=== PATIENT | male | born 1945 | race Caucasian/White ===

== ENCOUNTER 2018-12-29 07:57 | Inpatient (IN) ==
--- NOTE | 2018-12-14 15:52 | PAT Medication Instructions ---
Medication Instructions Date of Service December 14, 2018 Home Medications [place]-3 1 cap PO QAM aspirin 81 mg PO QAM cholecalciferol (vitamin D3) [Vitamin D3] 2,000 unit PO QAM levothyroxine 125 mcg PO QAM pantoprazole 40 mg PO QAM pravastatin 80 mg PO QPM ASK your prescriber and surgeon aspirin 81 mg PO QAM STOP taking 2 weeks before surgery (or as soon as possible if surgery is within 2 weeks) omega-3 1 cap PO QAM DO NOT take the morning of surgery cholecalciferol (vitamin D3) [Vitamin D3] 2,000 unit PO QAM Take morning of surgery With a small sip of water, OTHERWISE NOTHING TO EAT OR DRINK AFTER MIDNIGHT: levothyroxine 125 mcg PO QAM pantoprazole 40 mg PO QAM Take evening before surgery pravastatin 80 mg PO QPM Other Notes If you have any questions please call us at [phone] or [phone] or [phone] or [phone]
--- NOTE | 2018-12-15 09:58 | Anesthesiology Consultation ---
Date of Service December 15, 2018 Assessment & Plan (1) Encounter for pre-operative examination: - Awaiting review preop testing (labs, EKG, CXR). - Awaiting cardiology office visit scheduled 12/21/18, o monitor report and optimization response (Dr. Munoz). - ASA instructions: okay to continue perioperatively per surgeon Chart Review Chart Review: Patient seen in Pre Admission Testing Teaching & Discussion Pre-Anesthesia Teaching/Discussion Notes: Instructed NPO after midnight before surgery,except medications with 15 cc of water. Medication instructions provided according to the PAT guidelines. History Surgery Operation Date: 12/29/18 10:05 Proposed Procedures p L4-L5 Decompression and Fusion, - Evan Hackett DO s L1-L4 Hardware Removal with Spinal Cord Monitoring - Evan Hackett DO Height/Weight Height: 6 ft Weight: 101 kg Allergies Allergy/AdvReac Type Severity Reaction Status Date / Time hydrocodone Allergy Intermediate HIVES Verified 12/09/18 11:48 simvastatin Allergy Mild HIVES Verified 12/14/18 15:50 (with cholesterol med; unsure if zocor/simvastatin) Medications Home Medications Medication Instructions Recorded Confirmed Last Taken [place]-3 1 cap PO QAM 12/09/18 12/09/18 Unknown aspirin 81 mg PO QAM 12/09/18 12/09/18 Unknown cholecalciferol (vitamin D3) 2,000 unit PO QAM 12/09/18 12/09/18 Unknown [Vitamin D3] levothyroxine 125 mcg PO QAM 12/09/18 12/09/18 Unknown pantoprazole 40 mg PO QAM 12/09/18 12/09/18 Unknown pravastatin 80 mg PO QPM 12/09/18 12/09/18 Unknown tramadol 50 mg PO Q6H PRN 12/15/18 12/15/18 Unknown Past Medical History Medical History AAA (abdominal aortic aneurysm) ~3.4cm per patient, monitored by PCP BPH (benign prostatic hyperplasia) Bradycardia chronic, cardiology monitoring-- per patient, told no indication for pacemaker at this time* CAD (coronary artery disease) 2016 - [facility] - 1 stent - follows w/ Dr. Munoz 2005 - [facility] - 1 stent 2004 - [facility] - 1 stent GERD (gastroesophageal reflux disease) controlled Hyperlipidemia Hypothyroidism Myocardial Infarction 2016 Osteoarthritis Spinal stenosis Exercise / Class Metabolic Activity III < 4 Walking/Shop/Light housework Past Surgical History Surgical History History of cardiac cath 2016 - [facility] - 1 stent - follows w/ Dr. Munoz 2006 - [facility] - 1 stent 2005 - [facility] - 1 stent History of colonoscopy History of esophagogastroduodenoscopy (EGD) History of knee replacement procedure of left knee History of knee replacement procedure of right knee History of lumbar spinal fusion Lumbar decompression/fusion: 02/01/13: Grade 3 view, MAC#3, ETT 7.5 at [facility] History of revision of total replacement of right shoulder joint History of right shoulder replacement History of toe surgery Rt great toe History of tooth extraction History of total left hip replacement History of total right hip replacement Past Anesthesia History No Family Hx of Anesthesia Complications and Other "Slow to wake" x 1 episode. No known hx of reintubation. Patient also reports post-op hypotension (resolved with medical management) x 1 episode. History of PONV No Hx of PONV and Hx of Motion Sickness Social History Smoking Status: Never smoker Do You Dip or Chew Tobacco: No Hx Alcohol Use: Yes Alcohol type: beer and wine alcohol intake frequency: a few times a month Hx Substance Use: No substance use type: does not use Review of Systems Reflux controlled. Patient denies chest pain, shortness of breath, cough, wheezing, palpitations. Physical Exam Vital Signs VITALS BP 151/79 P 47 (baseline HR 40's) TEMP 97.6 SP02 94%RA RESP 18 PHYSICAL Full neck and c-spine range of motion. Full TMJ range of motion. TMD 3 finger breaths Mallampati Score 3 (small oral opening) Dentition: missing sides, implant upper front Lungs: clear throughout to auscultation Cardiac: bradycardia, regular rhythm, no murmurs noted Spine: normal Carotid arteries: negative bruit Extremities: no edema Testing Echocardiogram Date: 09/06/17 EF 30-35%. Akinetic anteroseptal and apical wall segments- remaining regments HK. Mild LAE/DEWEY. Thickened MV. Consistent with DD. Stress Test Date: 03/30/18 Type: nuclear LVEF 39%. Moderate diffuse HK. Anterior/anteroseptal wall infarction pattern. 41% MPHR. Regadenoson induced perfusion abnormality in the inferior and septal consistent with ischemia in the RCA distribution. *Subsequent cardiac cath* Cardiac Catheterization Date: 04/21/18 angiographically moderate CAD. Patent LAD/CX stents. LVEF 35%. Medical management recommended.
--- NOTE | 2018-12-15 11:04 | XRay Report ---
XR chest Pre-admission PA/Lat CLINICAL HISTORY: Preoperative evaluation. COMPARISON STUDY: Chest radiograph August 26, 2017. FINDINGS: Lung volumes are normal. Lungs are clear. There is no pneumothorax or pleural effusion. Mil d cardiomegaly is unchanged. Mediastinal contours are normal. There is no evidence for pulmonary katia a. Right shoulder arthroplasty and spine fusion hardware is incidentally noted. IMPRESSION: No acute cardiopulmonary findings. No change in appearance of the chest. Electronically signed by: Truong Kohli M.D. 12/15/2018 11:03 AM
[2018-12-15 12:16] LABS: Basophils # (auto) 0.01 K/uL (0-0.2); Basophils % (auto) 0.2 %; Eosinophils # (auto) 0.14 K/uL (0-0.5); Eosinophils % (auto) 2.4 %; Hematocrit (blood only) 51.4 % (42-52); Hemoglobin 17.5 g/dL (14.0-18.0); Immature Granulocytes # (auto) 0.02 K/uL (0.00-0.02); Immature Granulocytes % (auto) 0.3 %; Lymphocytes # (auto) 1.74 K/uL (1.2-3.4); Lymphocytes % (auto) 29.9 %; Mean Corpuscular Hemoglobin 32.6 pg (25-34); Mean Corpuscular Volume 95.7 fL (80-100); Mean Platelet Volume 11.2 fL (7.4-10.4); Monocytes # (auto) 0.59 K/uL (0.11-0.59); Monocytes % (auto) 10.1 %; Neutrophils # (auto) 3.32 K/uL (1.4-6.5); Neutrophils % (auto) 57.1 %; Platelet Count 127 K/uL (130-400); RDW Coefficient of Variation 13.6 % (11.5-14.5); RDW Standard Deviation 47.6 fL (36.4-46.3); Red Blood Count 5.37 M/uL (4.7-6.1); White Blood Count 5.82 K/uL (4.8-10.8)
[2018-12-15 12:25] LABS: BUN Creatinine Ratio 16.2 (10-20); Calcium 8.9 mg/dl (8.5-10.1); Creatinine Clr Calc Pharmacy 87.6 ml/min; Est GFR (African American) 95.9; Est GFR (Non-African American) 82.7; Potassium 4.6 mmol/L (3.5-5.1)
[2018-12-15 12:30] LABS: Partial Thromboplastin Time 26.2 Seconds (21.0-31.0); Prothrombin Time 10.7 Seconds (9.0-12.0)
[2018-12-15 12:32] LABS: Appearance Urine Clear (Clear); Bilirubin Urine Negative (Negative); Blood Urine Negative (Negative); Color Urine Yellow; Glucose Urine UA Negative (Negative); Ketones Urine Negative (Negative); Leukocyte Esterase Urine Negative (Negative); Nitrite Urine Negative (Negative); Protein Urine Negative (Negative); Urobilinogen Urine Negative (Negative)
[~2018-12-29 07:57] MED LIST: ACETAMINOPHEN 500 MG TAB PO SCH; CEFAZOLIN 2000MG 2,000 MG/15 ML SYR IV SCH; CeleBREX 200 MG CAP PO SCH; DEXAMETHASONE SOD INJ 4 MG/ML VIAL ONE; GABAPENTIN 300 MG CAP PO SCH; GLYCOPYRROLATE 0.2 MG/ML VIAL ONE; HYDROmorphone INJ 2 MG/ML SYR/VIAL ONE; LIDOCAINE HCL 2% 2 ML VIAL/AMP(20MG/ML) INFIL ONE; LR 15ML/HR IV SCH; MIDAZOLAM HCL 1 MG/ML 2ML VIAL ONE; NEOSTIGMINE METHYLSULFATE 1 MG/ML 10ML VIAL ONE; ONDANSETRON INJ 2 MG/ML 2 ML VIAL ONE; PROPOFOL IV EMULSION 10 MG/ML 20 ML VIAL IV ONE; ROCURONIUM BROMIDE 10 MG/ML 5 ML VIAL ONE; fentaNYL citrate 100 MCG/2 ML VIAL ONE
--- NOTE | 2018-12-29 08:45 | History & Physical Bridge Note ---
Date of Service December 29, 2018 History & Physical Bridge Note I have examined the patient, reviewed the History & Physical and in the interval since the performance of the History & Physical I have noted the following changes of clinical significance: no changes noted
--- NOTE | 2018-12-29 08:46 | History & Physical Report ---
Date of Service December 29, 2018 Assessment & Plan (1) Spinal stenosis, lumbar region with neurogenic claudication: Decompression and fusion L4-L5 hardware removal L1-L4 Present on Admission?: Yes History of Present Illness Chief Complaint: Back and leg pain Primary Care Provider: LILA Lockhart This is a 73-year-old male presents with chronic persistent back and leg pain after failing extensive course of nonoperative care is here for surgical intervention. Allergies Allergy/AdvReac Type Severity Reaction Status Date / Time hydrocodone Allergy Intermediate HIVES Verified 12/29/18 08:37 simvastatin Allergy Mild HIVES Verified 12/29/18 08:37 (with cholesterol med; unsure if zocor/simvastatin) Home Medications Home Medications Medication Instructions Recorded Confirmed Type [place]-3 1 cap PO QAM 12/09/18 12/29/18 History aspirin 81 mg PO QAM 12/09/18 12/29/18 History cholecalciferol (vitamin D3) 2,000 unit PO QAM 12/09/18 12/29/18 History [Vitamin D3] levothyroxine 125 mcg PO QAM 12/09/18 12/29/18 History pantoprazole 40 mg PO QAM 12/09/18 12/29/18 History pravastatin 80 mg PO QPM 12/09/18 12/29/18 History tramadol 50 mg PO Q6H PRN 12/15/18 12/29/18 History acetaminophen [Tylenol Arthritis 1,300 mg PO Q8 PRN 12/29/18 12/29/18 History Pain] Past Med/Surg History Social History Preferred Language: Mongolian Communication Ability: Effective Hydro Operator Required: No Beliefs That Will Affect Care: None Current Living Situation: Spouse Other Information That Helps Us Care for You: No Feels Safe at Home: Yes Safety Concerns: Feels Safe At This Time Smoking Status: Never smoker Do You Dip or Chew Tobacco: No ; Second Hand Exposure: No ; Hx Alcohol Use: Yes Alcohol type: beer and wine Hx Substance Use: No Physical Exam Physical Exam: Patient is alert and oriented neurologically intact. Results & Data Vital Signs (Past 12 Hours) Vital Signs Temp Pulse Resp BP Pulse Ox 12/29/18 08:43 36.8 C 56 L 20 153/85 H 96
[2018-12-29] MEDS ORDERED: BACITRACIN INJ 50,000 UNIT VIAL ONE (09:00)
[2018-12-29] MEDS ORDERED: BUPIVACAINE/EPINEPHRINE 0.5% MPF 1:200,000 30 ML VIAL ONE (09:01)
[2018-12-29] MEDS ORDERED: ATROPINE SULFATE 0.1 MG/ML 10ML SYR IV PRN (09:08)
[2018-12-29] MEDS ORDERED: fentaNYL citrate 100 MCG/2 ML VIAL IV PRN (09:08)
[2018-12-29] MEDS ORDERED: PROMETHAZINE HCL 12.5 MG in SODIUM CHLORIDE 0.9% 50 ML IV PRN ×2 (09:08→13:34)
[2018-12-29] MEDS ORDERED: ePHEDrine sulfate 50 MG/ML AMP IV PRN (09:08)
[2018-12-29] MEDS ORDERED: ONDANSETRON INJ 2 MG/ML 2 ML VIAL IV PRN ×2 (09:08→13:34)
[2018-12-29] MEDS ORDERED: fentaNYL citrate 100 MCG/2 ML VIAL ONE ×4 (09:54→11:44)
[2018-12-29] MEDS ORDERED: FLOSEAL HEMOSTATIC MATRIX 10ML TOP ONE (11:39)
[2018-12-29] MEDS ORDERED: ePHEDrine sulfate 50 MG/ML SYR ONE (11:43)
[2018-12-29] MEDS ORDERED: ePHEDrine sulfate 50 MG/ML AMP ONE (11:43)
[2018-12-29] MEDS ORDERED: KETOROLAC 30 MG/ML VIAL ONE (11:43)
[2018-12-29] MEDS ORDERED: PHENYLEPHRINE 100MCG/ML 5ML SYR ONE (11:43)
--- NOTE | 2018-12-29 11:44 | Operative Report ---
Post Operative Report Pre & Post Diagnosis Operation Date: 12/29/18 09:15 Pre-Op Diagnosis: Spinal stenosis, lumbar region with neurogenic claudication Post-Op Diagnosis: Spinal stenosis, lumbar region with neurogenic claudication I personally identified the patient: Yes Procedure Operation Date: 12/29/18 09:15 Actual Procedures #1 removal of posterior segmental instrumentation L1-L4. #2 expiration fusion L1-L4. #3 lumbar decompression with bilateral medial facetectomies and foraminotomies L4-5. #4 posterior spinal fusion L4-5 per #5 placement posterior instrumentation L4-5 per #6 interbody fusion L4-5 per #7 placement of titanium 13 x 26 mm cage L4-5 per #8 placement of local autograft in the posterior lateral gutters per #9 placement infuse collagen sponge, with master graft in the posterior lateral gutters and ostial amp and interbody space. Surgeon Evan Hackett DO P D Driver Madelyn Osuna Estimated Blood Loss 375 Findings Consistent with Post-Op Diagnosis Specimens None Indications This is a 73-year-old male well-known to the presents with above-mentioned diagnosis after failing extensive course of nonoperative care is here for surgical intervention. Description of Procedure Patient was met with identified and informed consent obtained. Patient was then taken to the operative suite underwent intubation placed in the prone position the Gato table on top of the Daniel frame. All bony prominences well-padded eyes inspected to ensure no external pressure placed upon but this point the lumbar spine was prepped and draped in the normal sterile fashion. Sharp dissection with the assistance of Bovie cautery was performed down to and exposing instrumentation at L1 L2-L3-L4 bilaterally as well as the lamina and transverse processes of L5. I then proceed remove the hardware bilaterally from L1-L4 explain the fusion mass noting it to be intact. And then performed a complete laminectomy of L5 including bilateral medial facetectomies foraminotomies addressing severe spinal stenosis. Pedicle screws were then placed in L4 and L5 bilaterally with assistance of fluoroscopy and the appropriately sized julianne placed. By way of a transforaminal approach on the right complete discectomy was performed in plate graded to subcortical mean bone and a 13 x 26 mm titanium cage filled with osteo-amp bone graft tapped in position. Rods and then compressed locked in final position bilaterally. The transverse processes of L5 and L4 were then burred to subcortical bleeding bone. Infuse collagen sponge master graft and local autograft placed in the posterior lateral gutters. 15 round SAMEER drain inserted. The incision was then closed with 1 Vicryl in the fascia 2-0 Vicryl substantially and 4 Monocryl for final skin closure. Steri-Strip sterile dressings placed. Patient will continue to PACU stable condition. Please note Madelyn Osuna present all the entire procedure involved in patient positioning complex portions of the surgery and final skin closure. Lastly spinal cord monitoring was utilized throughout the procedure no changes noted. I attest to the content of the Intraoperative Record and any orders documented therein. Any exceptions are noted below.
--- NOTE | 2018-12-29 11:56 | Fluoroscopy Report ---
FL lumbar spine 2-3V HISTORY: 73 years-old Male L4-5 DECOM/FUSION L1-4 HARDWARE REMOVAL STATUS post fusion with hardware removal of the lumbar spine COMPARISON: Lumbar spine radiographic images 02/11/2013 TECHNIQUE: 2 spot fluoroscopic images of the lumbar spine were obtained utilizing 10.4 seconds fluoro scopy time. FINDINGS: Status post removal of the previously described fusion rods at L1-L4 with removal of the pedicle scre ws at L1-L3. Laminectomy with posterior interbody julianne and screw fusion with discectomy changes are no w present at L4-L5. Multilevel disc space narrowing with spondylitic spurring. Alignment is not well assessed secondary to positioning. Correlate with follow-up radiograph. IMPRESSION: Fluoroscopic assistance as above. Please see operative report for further details. The above report was generated using voice recognition software. It may contain grammatical, syntax o r spelling errors. Electronically signed by: Nazario Noel M.D. 12/29/2018 11:55 AM
--- NOTE | 2018-12-29 12:36 | Anesthesiology Progress Note ---
Date of Service December 29, 2018 Anesthesia Post Procedure Vital Signs Vital Signs: Temp Pulse Pulse Resp BP Pulse Ox 12/29/18 12:25 71 16 144/81 H 95 12/29/18 12:15 67 16 143/83 H 95 12/29/18 12:07 36.5 C 83 16 147/84 H 93 12/29/18 08:43 36.8 C 56 L 20 153/85 H 96 Pain Intensity Right Back: Pain Intensity: 10 Left Back: Pain Intensity: 3 Transfer of Care Handoff Completed per policy Notes Mental Status: alert / awake / arousable and participated in evaluation Patient Amnestic to Procedure: Yes Nausea / Vomiting: adequately controlled Pain: adequately controlled Airway Patency, RR, SpO2: stable & adequate BP & HR: stable & adequate Hydration State: stable & adequate Anesthetic Complications: no major complications apparent and Pt Satisfied with anesthetic care
[2018-12-29] MEDS ORDERED: ALUMINUM/MAGNESIUM SUSP 30 ML UDC PO PRN (13:34)
[2018-12-29] MEDS ORDERED: ACETAMINOPHEN 1300 MG PO PRN (13:34)
[2018-12-29] MEDS ORDERED: ONDANSETRON 4 MG TAB PO PRN (13:34)
[2018-12-29] MEDS ORDERED: MAGNESIUM HYDROXIDE SUSP 30 ML UDC PO PRN (13:34)
[2018-12-29] MEDS ORDERED: ACETAMINOPHEN 1,000 MG/100 ML VIAL IV PRN (13:34)
[2018-12-29] MEDS ORDERED: NALOXONE HCL 0.4 MG/1 ML VIAL/CARP IV PRN (13:34)
[2018-12-29] MEDS ORDERED: ACETAMINOPHEN 500 MG TAB PO PRN (13:34)
[2018-12-29] MEDS ORDERED: bisacodyL 10 MG SUPP PR PRN (13:34)
[2018-12-29] MEDS ORDERED: DO NOT ADMINISTER PNEUMOCOCCAL VACCINE PRN (13:34)
[2018-12-29] MEDS ORDERED: METOCLOPRAMIDE HCL INJ 5 MG/ML 2 ML VIAL IV PRN (13:34)
[2018-12-29] MEDS ORDERED: FAMOTIDINE 20 MG TAB PO PRN (13:34)
[2018-12-29] MEDS ORDERED: HYDROmorphone INJ 0.5 MG/0.5 ML SYR IV PRN (13:34)
[2018-12-29] MEDS ORDERED: LORazepam 0.5 MG/1 ML VIAL IV PRN (13:34)
[2018-12-29] MEDS ORDERED: TRAMADOL HCL 50 MG TABLET PO PRN (13:34)
[2018-12-29] MEDS ORDERED: DO NOT ADMINISTER FLU VACCINE PRN (13:34)
[2018-12-29] MEDS ORDERED: LORazepam 0.5 MG TAB PO PRN (13:34)
[2018-12-29] MEDS ORDERED: SOD PHOSPHATE/SOD BIPHOSPHATE ENEMA 132 ML BTL PR PRN (13:34)
[2018-12-29] MEDS: KETOROLAC TROMETHAMINE 15 MG/ML VIAL IV SCH ×2 (15:11→19:42)
[2018-12-29] MEDS: LACTATED RINGER'S 1,000 ML IV SCH (17:19)
[2018-12-29] MEDS: CEFAZOLIN 2000MG 2,000 MG/15 ML SYR IV SCH (17:23)
[2018-12-29] MEDS: DOCUSATE SODIUM/SENNA 50/8.6MG TAB PO SCH (20:33)
[2018-12-29] MEDS: PRAVASTATIN SOD 40 MG TAB PO SCH (20:33)
[2018-12-30] MEDS: KETOROLAC TROMETHAMINE 15 MG/ML VIAL IV SCH ×2 (00:55→08:31)
[2018-12-30] MEDS: CEFAZOLIN 2000MG 2,000 MG/15 ML SYR IV SCH (00:55)
[2018-12-30] MEDS: LACTATED RINGER'S 1,000 ML IV SCH (03:54)
[2018-12-30 05:34] LABS: Hematocrit (blood only) 42.1 % (42-52); Hemoglobin 14.3 g/dL (14.0-18.0); Immature Granulocytes # (auto) 0.06 K/uL (0.00-0.02); Immature Granulocytes % (auto) 0.3 %; Lymphocytes # (auto) 1.52 K/uL (1.2-3.4); Lymphocytes % (auto) 8.1 %; Mean Corpuscular Hemoglobin 32.3 pg (25-34); Mean Platelet Volume 10.6 fL (7.4-10.4); Monocytes % (auto) 6.9 %; Neutrophils # (auto) 15.94 K/uL (1.4-6.5); Neutrophils % (auto) 84.7 %; Platelet Count 141 K/uL (130-400); RDW Coefficient of Variation 13.7 % (11.5-14.5); RDW Standard Deviation 47.6 fL (36.4-46.3); Red Blood Count 4.43 M/uL (4.7-6.1); White Blood Count 18.82 K/uL (4.8-10.8)
[2018-12-30] MEDS: POLYETHYLENE (MIRALAX) 17 GM PACK PO SCH ×3 (05:43→17:48)
[2018-12-30] MEDS: LEVOTHYROXINE SODIUM 125 MCG TABLET PO SCH (05:43)
[2018-12-30 06:04] LABS: Calcium 8.5 mg/dl (8.5-10.1); Creatinine Clr Calc Pharmacy 81.1 ml/min; Est GFR (African American) 89.3; Potassium 4.9 mmol/L (3.5-5.1)
--- NOTE | 2018-12-30 08:17 | Anesthesiology Progress Note ---
Date of Service December 30, 2018 Anesthesia Post Procedure Vital Signs Vital Signs: Temp Pulse Pulse Resp BP Pulse Ox 12/30/18 07:47 36.5 C 56 L 16 124/73 94 12/30/18 03:50 36.8 C 61 18 132/70 96 12/30/18 00:00 36.8 C 66 17 114/62 91 12/29/18 22:31 96 12/29/18 19:02 36.5 C 63 17 117/65 95 12/29/18 16:45 81 18 128/77 96 12/29/18 15:34 87 18 124/76 95 12/29/18 14:10 88 16 125/77 95 12/29/18 13:35 83 16 122/78 94 12/29/18 13:10 36.6 C 64 16 126/73 94 12/29/18 12:45 36.4 C L 64 16 124/75 97 12/29/18 12:35 36.4 C L 66 16 139/76 97 12/29/18 12:25 71 16 144/81 H 95 12/29/18 12:15 67 16 143/83 H 95 12/29/18 12:07 36.5 C 83 16 147/84 H 93 12/29/18 08:43 36.8 C 56 L 20 153/85 H 96 Pain Intensity Right Back: Pain Intensity: 1 Left Back: Pain Intensity: 1 Notes Mental Status: alert / awake / arousable and participated in evaluation Patient Amnestic to Procedure: Yes Nausea / Vomiting: adequately controlled Pain: adequately controlled Airway Patency, RR, SpO2: stable & adequate BP & HR: stable & adequate Hydration State: stable & adequate Anesthetic Complications: no major complications apparent
[2018-12-30] MEDS: PANTOprazole 40 MG TAB PO SCH (08:31)
[2018-12-30] MEDS: ASPIRIN 81 MG ECTAB PO SCH (08:31)
--- NOTE | 2018-12-30 12:52 | Orthopedic Progress Note ---
Date of Service December 30, 2018 Assessment & Plan (1) Spinal stenosis, lumbar region with neurogenic claudication: This time we will continue physical therapy monitor SAMEER output hopefully discharge home this weekend. Present on Admission?: Yes Subjective Patient is doing quite well. Leg pain markedly improved. Physical Exam Physical Exam: Patient has good strength testing appears comfortable. Results & Data Vital Signs (Past 12 Hours) Vital Signs Temp Pulse Resp BP Pulse Ox 12/30/18 07:47 36.5 C 56 L 16 124/73 94 12/30/18 03:50 36.8 C 61 18 132/70 96
[2018-12-30] MEDS: DOCUSATE SODIUM/SENNA 50/8.6MG TAB PO SCH (21:18)
[2018-12-30] MEDS: PRAVASTATIN SOD 40 MG TAB PO SCH (21:18)
[2018-12-30] MEDS: OXYCODONE HCL IR 5 MG TAB (IMMEDIATE RELEASE) PO PRN (21:18)
[2018-12-31] MEDS: LEVOTHYROXINE SODIUM 125 MCG TABLET PO SCH (05:40)
[2018-12-31] MEDS: OXYCODONE HCL IR 5 MG TAB (IMMEDIATE RELEASE) PO PRN ×3 (05:41→20:37)
[2018-12-31] MEDS: ASPIRIN 81 MG ECTAB PO SCH (08:02)
[2018-12-31] MEDS: PANTOprazole 40 MG TAB PO SCH (08:02)
--- NOTE | 2018-12-31 13:27 | Orthopedic Progress Note ---
Date of Service December 31, 2018 Assessment & Plan (1) Spinal stenosis, lumbar region with neurogenic claudication: This time we will continue physical therapy monitor his SAMEER output anticipate discharge home tomorrow. Present on Admission?: Yes Subjective Patient's back pain is controlled leg pain markedly improved. Physical Exam Physical Exam: Patient is in the chair at the bedside. Is good strength testing. Appears comfortable. Results & Data Vital Signs (Past 12 Hours) Vital Signs Temp Pulse Pulse Resp BP Pulse Ox 12/31/18 10:24 64 12/31/18 07:45 36.4 C L 45 L 14 130/74 97
[2018-12-31] MEDS: DOCUSATE SODIUM/SENNA 50/8.6MG TAB PO SCH (20:37)
[2018-12-31] MEDS: PRAVASTATIN SOD 40 MG TAB PO SCH (20:37)
[2019-01-01] MEDS: LEVOTHYROXINE SODIUM 125 MCG TABLET PO SCH (06:01)
[2019-01-01] MEDS: OXYCODONE HCL IR 5 MG TAB (IMMEDIATE RELEASE) PO PRN (06:08)
[2019-01-01] MEDS: PANTOprazole 40 MG TAB PO SCH (08:10)
[2019-01-01] MEDS: ASPIRIN 81 MG ECTAB PO SCH (08:10)
--- NOTE | 2019-01-01 09:59 | Discharge Summary ---
Date of Service January 01, 2019 Admission HPI Per Admitting Provider This is a 73-year-old male presents with chronic persistent back and leg pain after failing extensive course of nonoperative care is here for surgical intervention. Principal Diagnosis Lumbar spinal stenosis with neurogenic claudication Discharge Data Allergies Allergy/AdvReac Type Severity Reaction Status Date / Time hydrocodone Allergy Intermediate HIVES Verified 12/29/18 08:37 simvastatin Allergy Mild HIVES Verified 12/29/18 08:37 (with cholesterol med; unsure if zocor/simvastatin) Consultations 12/29/18 13:34 Consult Case Management - Discharge Planning Routine Procedures Performed Operation Date: 12/29/18 09:15 Actual Procedures p L4-L5 Decompression and Fusion, L1-L4 Hardware Removal with Spinal Cord Monitoring, Application of Bone Morphogenetic Protein and Allograft - Evan Hackett DO Ordered Studies 12/29/18 09:15 FL fluoroscopy <1hr Routine [place] lumbar spine 2-3V Routine Hospital Course (1) Spinal stenosis, lumbar region with neurogenic claudication: Patient underwent lumbar decompression fusion tolerated as well as taken to the orthopedic floor postoperative. Postop day #1 he was up and ambulating. Progressed to postop day #2 postop 3 SAMEER drain decreased appropriately. He has good strength testing. Ambulating well. Subsequently discharged home. Discharge orders instructions from the chart for further review. Total Time Total Time Spent Total Time Spent (In Minutes): 20 minutes Discharge Plan Discharge Items Patient Disposition: Home - Self-Care Reason For Visit: LUMBAR SPINAL STENOSIS W/O NEUROGENIC CLAUDICATION Discharge Diagnosis: Lumbar spinal stenosis with neurogenic claudication Activity: Per Instructions section Non-emergency contact: Primary Care Provider Call non-emergency contact if: you have any medication questions Follow-up/Referrals: Deidre Perry CRNP [Primary Care Provider] - Diet: Regular Addtl Attending Provider Instructions: ACTIVITY RECOMMENDATIONS: SELF CARE INSTRUCTIONS AFTER THORACIC/LUMBAR FUSIONS 1. You may walk to your tolerance. It is good exercise for your legs and back. Expect some back and intermittent leg aches and pains. 2. You may perform "counter-top" level activities (make a sandwich, mallika with a project, etc.). 3. No bending or lifting of more than 10 pounds or back twisting of any nature (roll like a log when turning in bed). 4. You may ride in a car for 20-30 minutes at a time. No driving until after your first visit with your doctor. 5. Frequent changes of position and restricting sitting to 30 minutes at a time will help limit the amount of back spasms and stiffness you may experience. 6. You may discontinue the use of ambulatory aids (cane, crutches, etc.) once your strength and confidence allow. 7. You may pipe threading machine operator the shower and let water strike your incision when you arrive home at least once daily. Do not take a tub bath, sit in a hot tub or go into a swimming pool until after your first recheck in the office. SPECIAL CARE INSTRUCTIONS: VERY IMPORTANT TO READ AND REVIEW A. Your surgical incision has been closed with a cosmetic suture under the skin that will dissolve in about 6 weeks. In 14 days, you can use a pair of clean scissors and cut the suture that is left outside of the skin at the ends of your incision. 1. The small skin tapes can be removed 7 days after surgery if they have not fallen off by that point. 2. You may keep the wound open to air as much as possible to promote healing after post-op day number 5 unless told otherwise by your doctor. 3. If you think the wound looks like it is becoming infected (redness or worsening drainage) and/or you are experiencing fever, chill or worsening back pain and muscle spasms, contact the office so that we may evaluate you as soon as possible. B. Complications are uncommon, but please contact us if you have any signs or symptoms of: 1. wound infection (fever higher than 102.5 degrees F, redness, separation of wound, drainage, or increasing pain from the incision) 2. blood clots in legs (pain, swelling, redness and warmth in legs) 3. urinary tract infection (fever higher than 102.5 degrees F, burning upon urination or increased frequency of urination) 4. nerve problems (inability to walk on your toes or heels, numbness, loss of bowel or bladder control) 5. any other symptoms that concern you C. Please call the office at if you have any concerns or questions about your operation or recovery. D. No smoking! Smoking drastically decreases the chance of a solid fusion. E. Do not take any anti-inflammatory medications (Indocin, Advil, Motrin, Aspirin, Naprosyn, etc.) as these may inhibit the chance of a solid fusion. Tylenol is okay to take for pain. MANAGING PAIN AFTER SPINAL SURGERY 1. Narcotic medication is intended for short-term use and will be provided for surgical pain. Surgical pain usually lasts for a period of 4-6 weeks. Narcotic medication includes Percocet, Vicodin, Darvocet, Tylenol #3 or Lortab. 2. Longer-term pain is more appropriately treated with non-narcotic medication such as Tylenol ES. 3. Muscle spasm is not appropriately treated with narcotics. Muscle relaxers such as Soma, Flexeril or Skelaxin can be used along with Tylenol ES. 4. Remember that we all live with some "aches and pains". This is not unusual or uncommon after an injury or as we get older. a. Back pain is expected and may include muscle spasms for 4 to 6 weeks after surgery. The pain should gradually improve. If the pain worsens for no apparent reason, please contact the office. b. Intermittent leg pain may also be experienced and should not be concerned about unless it worsens for no apparent reason. If so, please contact the office. 5. We will provide appropriate medication within the normal guidelines of their prescribed use. We will also be very cautious and aware of potential abuse and extended duration of patients' medication needs. a. Pain medications are for your comfort and to assist with sleep and rest so that the tissue can heal. They are not provided in order to return to normal activity and should not be used through the day. To do so or worsening pain at night can result from ongoing tissue damage and development of tolerance to the prescribed medicine. 6. Please allow 2-3 days to process refills. Prescriptions will not be mailed but must be picked up at the office. FOLLOW UP VISIT: Keep your scheduled follow-up appointment. Any questions, please call the office at . Pending Studies at Discharge: No Stand-Alone Forms: My [facility] Medications and DC Order Prescriptions: New tramadol 50 mg Tablet 50 mg PO Q4H PRN (Reason: Pain, Moderate) Qty: 30 RF: 0 oxycodone 5 mg Tablet 5 mg PO Q4H PRN (Reason: Pain, Severe) Qty: 30 RF: 0 Continued aspirin 81 mg Tablet,Delayed Release (Dr/Ec) 81 mg PO QAM RF: 0 pravastatin 80 mg Tablet 80 mg PO QPM RF: 0 pantoprazole 40 mg Tablet,Delayed Release (Dr/Ec) 40 mg PO QAM RF: 0 levothyroxine 125 mcg Tablet 125 mcg PO QAM RF: 0 cholecalciferol (vitamin D3) [Vitamin D3] 2,000 unit Capsule 2,000 unit PO QAM RF: 0 [place]-3 1 cap PO QAM RF: 0 tramadol 50 mg Tablet 50 mg PO Q6H PRN (Reason: Pain) RF: 0 acetaminophen [Tylenol Arthritis Pain] 650 mg Tablet Extended Release 1,300 mg PO Q8 PRN (Reason: Pain) RF: 0 Discharge Orders: Discharge Order (Routine); Ordered 01/01/19 Ordered By: Evan Hackett Admission Data Admit Date/Time: 12/29/18 11:47 Attending Provider: Evan Hackett Admit Provider: Evan Hackett Primary Care Provider: Deidre Perry
== END 2019-01-01 11:15 | disposition home or self-care (01) | DRG 455 ==
LOC: ASU 07:57 → 3E 11:47

== ENCOUNTER 2022-05-14 08:43 | Observation (INO) ==
--- NOTE | 2022-05-08 16:39 | Communication Note ---
Date of Service: May 08, 2022 Patient is an ASA 4 and therefore does not meet criteria for surgicenter
--- NOTE | 2022-05-12 11:00 | Anesthesiology Consultation ---
Date of Service May 12, 2022 Assessment & Plan (1) Encounter for pre-operative examination: Chart Review Chart Review: Acceptable Risk for Surgery (pending most recent pacemaker check and updated cardiac testing if available ) and Patient NOT seen in Pre Admission Testing -Please fax for/awaiting- most recent pacemaker check and any updated cardiac testing -Pt initially scheduled at [facility]- Dr Hussein reviewed chart and recommended patient be done at main OR due to comorbidities -COVID screening: Per PAT nursing assessment on 05/08/22. No known COVID-19 positive contacts or current COVID-19 related symptoms. Travel screen negative. Patient vaccinated for Covid. At surgeon discretion if preop Covid testing being done. Per cardio letter 04/25/22= "Preoperative clearance for hip arthroscopy, bursectomy, gluteal tear repair with gluteus braulio transfer on 05/14/2022 . Patient is at intermediate risk for the low risk procedure. Patient currently asymptomatic. METS greater than 4. No further cardiac testing prior to procedure. Continue aspirin perioperatively" Removal previous hardware L1-L4, L4-L5 decompression and fusion 12/29/18= Done under [place] with Grade 1 view with Glidescope #4. ETT #8.0. DL x 1, poor view, GS #4, good view, easy History Surgery Operation Date: 05/14/22 07:00 Proposed Procedures p Left Hip Open Bursectomy, Gluteal Tendon Repair with Gluteus Braulio Transfer(Left) - Sunil Sanchez MD Operation Date: 05/14/22 10:15 Proposed Procedures p Excision Calcific Bursa Hip - Sunil Sanchez MD s Gluteal Tendon Repair witih Gluteus Braulio Transfer - Sunil Sanchez MD Height/Weight Height: 6 ft Weight: 99.79 kg Allergies Allergy/AdvReac Type Severity Reaction Status Date / Time hydrocodone Allergy Intermediate HIVES Verified 05/08/22 08:49 simvastatin Allergy Mild HIVES Verified 05/08/22 08:49 (with cholesterol med; unsure if zocor/simvastatin) Medications Home Medications Medication Instructions Recorded Confirmed Last Taken Goode-3 1 cap PO QAM 12/09/18 05/08/22 12/15/18 aspirin 81 mg tablet,delayed 81 mg PO QAM 12/09/18 05/08/22 12/28/18 08:00 release cholecalciferol (vitamin D3) 50 2,000 unit PO QAM 12/09/18 05/08/22 Unknown mcg (2,000 unit) capsule (Vitamin D3) levothyroxine 125 mcg tablet 125 mcg PO QAM 12/09/18 05/08/22 12/29/18 06:00 pravastatin 80 mg tablet 40 mg PO QPM 12/09/18 05/08/22 12/28/18 20:00 acetaminophen 650 mg 1,300 mg PO Q8 PRN Pain 12/29/18 05/08/22 12/29/18 00:00 tablet,extended release (Tylenol Arthritis Pain) Past Medical History Medical History AAA (abdominal aortic aneurysm) ~3.4cm per patient, monitored by PCP BPH (benign prostatic hyperplasia) Bradycardia S/p pacemaker placement CAD (coronary artery disease) 2015 - [place] [id number] stent - follows w/ [facility] cardio at [facility] 2005 [place] [id number] stent 2004 [place] [address] stent GERD (gastroesophageal reflux disease) controlled History of COVID-19 11/2021 fatigue, runny nose, cough ,fever; no hospitalization, no current issues Hx of basal cell carcinoma Hyperlipidemia Hypothyroidism Myocardial Infarction 2015 Pacemaker [facility]- checked via at home monitor every morning - last visit ?fall 2021 Spinal stenosis Tear of gluteus medius tendon Past Family History Family History Other No family history of adverse response to anesthesia Past Surgical History Surgical History History of cardiac cath 2015 - [place] [id number] stent - follows w/ [facility] cardio- ?2021 2005 [place] [id number] stent 2004 [place] [address] stent History of colonoscopy History of esophagogastroduodenoscopy (EGD) History of implantable cardiac defibrillator (ICD) History of knee replacement procedure of left knee History of knee replacement procedure of right knee History of lumbar spinal fusion Lumbar decompression/fusion: 02/01/13: Grade 3 view, MAC#3, ETT 7.5 at [facility] History of revision of total replacement of right shoulder joint History of right shoulder replacement History of toe surgery Rt great toe History of tooth extraction History of total left hip replacement History of total right hip replacement Hx of basal cell carcinoma excision Hx of cataract extraction b/l Social History Smoking Status: Never smoker Do You Dip or Chew Tobacco: No Hx Alcohol Use: No Alcohol type: beer and wine alcohol intake frequency: a few times a month Hx Substance Use: No substance use type: does not use Lab Results Anesthesia Preop Results Results Anesthesia Widget: WBC 6.85 K/ul (4.8-10.8) 04/24/22 Hgb 17.7 g/dl (14.0-18.0) 04/24/22 Hct 51.4 % (42.0-52.0) 04/24/22 Plt 133 K/uL (130-400) 04/24/22 Na 140 mmol/L (136-145) 04/24/22 K 4.5 mmol/L (3.5-5.1) 04/24/22 Cl 105 mmol/L (98-107) 04/24/22 CO2 31 mmol/L (21-32) 04/24/22 BUN 24 mg/dl (6-23) H 04/24/22 Creat 0.97 mg/dl (0.6-1.4) 04/24/22 Glucose Level 93 mg/dl (70-99(Fasting)) 04/24/22 Testing Electrocardiogram Date: 04/24/22 AV dual paced rhythm at 60bpm Biventricular pacemaker detected. Chest X-Ray Date: 04/24/22 Findings: + NAD FINDINGS: Left subclavian pacer and right shoulder arthroplasty are incidentally noted. There is no pneumothorax or pleural effusion. There is no consolidation or evidence for pulmonary edema. Cardiomegaly is unchanged. IMPRESSION: No acute cardiopulmonary findings. No change in appearance of the chest. Echocardiogram Date: 09/06/17 EF 30-35%. Akinetic anteroseptal and apical wall segments- remaining regments HK. Mild LAE/DEWEY. Thickened MV. Consistent with DD. Stress Test Date: 03/30/18 Type: nuclear LVEF 39%. Moderate diffuse HK. Anterior/anteroseptal wall infarction pattern. 41% MPHR. Regadenoson induced perfusion abnormality in the inferior and septal consistent with ischemia in the RCA distribution. *Subsequent cardiac cath* Cardiac Catheterization Date: 04/21/18 angiographically moderate CAD. Patent LAD/CX stents. LVEF 35%. Medical management recommended.
[~2022-05-14 08:43] MED LIST changes: -CEFAZOLIN 2000MG 2,000 MG/15 ML SYR IV SCH; -CeleBREX 200 MG CAP PO SCH; -DEXAMETHASONE SOD INJ 4 MG/ML VIAL ONE; -GABAPENTIN 300 MG CAP PO SCH; -GLYCOPYRROLATE 0.2 MG/ML VIAL ONE; -HYDROmorphone INJ 2 MG/ML SYR/VIAL ONE; -LIDOCAINE HCL 2% 2 ML VIAL/AMP(20MG/ML) INFIL ONE; +LR 60ML/HR IV SCH; -MIDAZOLAM HCL 1 MG/ML 2ML VIAL ONE; -NEOSTIGMINE METHYLSULFATE 1 MG/ML 10ML VIAL ONE; -ONDANSETRON INJ 2 MG/ML 2 ML VIAL ONE; -PROPOFOL IV EMULSION 10 MG/ML 20 ML VIAL IV ONE; -ROCURONIUM BROMIDE 10 MG/ML 5 ML VIAL ONE; +TRANEXAMIC ACID 1,000 MG **IV Pre-op IV SCH; +ceFAZolin 2000MG 2,000 MG/15 ML SYR IV SCH; +dexAMETHasone 4 MG TAB PO SCH; -fentaNYL citrate 100 MCG/2 ML VIAL ONE
[2022-05-14] MEDS ORDERED: MIDAZOLAM HCL 1 MG/ML 2ML VIAL ONE (09:11)
[2022-05-14] MEDS ORDERED: fentaNYL citrate 100 MCG/2 ML VIAL ONE (09:12)
[2022-05-14] MEDS ORDERED: ePHEDrine sulfate 50 MG/ML AMP IV PRN (09:22)
[2022-05-14] MEDS ORDERED: fentaNYL citrate 100 MCG/2 ML VIAL IV PRN (09:22)
[2022-05-14] MEDS ORDERED: ATROPINE SULFATE 0.1 MG/ML 10ML SYR IV PRN (09:22)
[2022-05-14] MEDS ORDERED: PROMETHAZINE HCL 6.25 MG in SODIUM CHLORIDE 0.9% 50 ML IV PRN (09:22)
[2022-05-14] MEDS ORDERED: ONDANSETRON INJ 2 MG/ML 2 ML VIAL IV PRN ×2 (09:22→13:52)
--- NOTE | 2022-05-14 10:08 | History & Physical Bridge Note ---
Date of Service May 14, 2022 History & Physical Bridge Note I have examined the patient, reviewed the History & Physical and in the interval since the performance of the History & Physical I have noted the following changes of clinical significance: no changes noted
[2022-05-14] MEDS ORDERED: BUPIVACAINE/EPINEPHRINE 0.5% MPF 1:200,000 30 ML VIAL ONE (10:58)
[2022-05-14] MEDS ORDERED: DEXAMETHASONE SOD INJ 4 MG/ML VIAL ONE (11:44)
[2022-05-14] MEDS ORDERED: ROCURONIUM BROMIDE 10 MG/ML 5 ML VIAL IV ONE (11:44)
[2022-05-14] MEDS ORDERED: PHENYLEPHRINE HCL 10 MG/ML VIAL ONE (11:44)
[2022-05-14] MEDS ORDERED: PROPOFOL IV EMULSION 10 MG/ML 20 ML VIAL IV ONE (11:45)
[2022-05-14] MEDS ORDERED: GLYCOPYRROLATE 0.2 MG/ML VIAL ONE (12:33)
[2022-05-14] MEDS ORDERED: NEOSTIGMINE METHYLSULFATE 1 MG/ML 10ML VIAL ONE (12:33)
--- NOTE | 2022-05-14 12:48 | Post Operative Brief Note ---
PG Immediate Post Op with CF Date of Surgery May 14, 2022 Pre & Post Diagnosis Operation Date: 05/14/22 07:00 <No data on this case meets the specified criteria> Operation Date: 05/14/22 10:15 Pre-Op Diagnosis: Gait Disturbance, Tear of Gluteus Medius Tendon Post-Op Diagnosis: Gait Disturbance, Tear of Gluteus Medius Tendon I identified the patient and participated in the time-out.: Yes Procedure Operation Date: 05/14/22 07:00 <No data on this case meets the specified criteria> Operation Date: 05/14/22 10:15 Actual Procedures p Left Hip Open Bursectomy,Gluteal Tendon Repair witih Gluteus Braulio Transfer(Left) - Sunil Sanchez MD Surgeon Sunil Sanchez MD [employer] Clem Streeter PA-C and Mare Chandra PA-C Estimated Blood Loss 25 Findings Consistent with Post-Op Diagnosis
--- NOTE | 2022-05-14 13:39 | Operative Report ---
PG Post Operative Report Pre & Post Diagnosis Operation Date: 05/14/22 10:15 Pre-Op Diagnosis: Gait Disturbance, Tear of Gluteus Medius Tendon, abductor dysfunction Post-Op Diagnosis: Gait Disturbance, Tear of Gluteus Medius Tendon, gluteus medius insufficiency I identified the patient and participated in the time-out.: Yes Procedure Operation Date: 05/14/22 10:15 Actual Procedures p Left Hip Open Bursectomy, Partial Gluteal Tendon Repair with Gluteus Braulio Transfer(Left) - Sunil Sanchez MD Surgeon Sunil Sanchez MD Police Guard Clem Streeter PA-C and Mare Lyon PA-C Estimated Blood Loss 25 Findings See Below The gluteus medius was deficient and had a bursal sided tear with atrophy. There was extensive bursitis that was debrided. The gluteus braulio and TFL tissue was healthy and contractile. The medial edge of the gluteus medius was repaired in the gluteus braulio transfer construct which involved a 4 cm wide sleeve of the TFL/gluteus braulio in line fibers fixed to the bare trochanteric footprint with a 5 anchor double row construct, using 3 Arthrex 2.6 mm fiber tack anchors on the medial row with medial linked seal, with tapes taken laterally with the posterior repair stitch to 5.5 mm bio composite swivel locks with a knotless construct uses a lateral linked seal. The distal edge of the transfer flap was then approximated to elevated vastus lateralis using #2 Vicryl stitches. Specimens None Anesthesia Type General Complications none Disposition Accompanied Patient To Recovery: No Disposition: Recovery Room Indications 76-year-old male presented with longstanding chronic lateral hip pain despite a total hip replacement. He was referred for abductor dysfunction, and he felt that his lifestyle was significantly limited due to hip pain and limping. 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 Did have a history of a spinal fusion. Given his gluteus medius dysfunction and healthy gluteus braulio tissue, I did offer elective gluteal repair with the gluteus braulio transfer to restore abductors function. I reviewed the risks, techniques, alternatives, expected outcomes, and required rehabilitation for the surgery. The risks I reviewed included, but were not limited to, infection, nerve or vessel injury, arthrofibrosis of the hip, periprosthetic fracture, need for repeat or revision surgery, failure to relieve preoperative symptoms, implant failure and migration, pain syndromes, blood clots, and complications related to anesthesia. He and his asked appropriate questions over at least 2 visits, demonstrated a good understanding, and it this time confirmed that they want to proceed with gluteal repair with gluteus braulio transfer to restore abductor function. Informed consent was documented in the clinic, and confirmed today. Description of Procedure On the day of surgery, the patient was greeted in the preoperative holding area. The informed consent was reviewed and confirmed by myself and the patient. The patient identified the surgical site and was marked by me. The patient was then turned over to anesthesia. He was taken to the operating place upon the OR table. Anesthesia was induced and the airway was secured. The patient was then placed in a lateral decubitus position for left hip surgery. Beanbag positioner was used to secure the patient. An axillary roll was placed. All bony prominences were well-padded. The right lower extremity was then prepped and draped in the usual sterile fashion for open hip surgery. Surgical timeout was called by the circulating nurse and verified all present. Antibiotics had been infused, and equipment was available and functional. Posterolateral approach incision to the hip was planned out [incorporating previous healed incision]. The eschar was excised and the skin. Incision was carried out after anesthetizing the skin with 30 cc of half percent Marcaine with epinephrine. Sharp dissection was carried down through fat with hemostasis achieved with electrocautery. The IT band was cleared of fat by approximately 1 cm in pr eparation for closure. In addition the posterior limb was exposed by elevating the adipose layer in preparation for the transfer. Full-thickness incision was made down through the IT band and carried to the gluteus fascia. This exposed the greater trochanter. The tear region was identified and easily found in the open fashion. The gluteal footprint on the greater trochanter was bare and had extensive fibrinous tissue. Some was dark brown and pool. This was all debrided. There was extensive bursitis that enveloped the greater trochanter and underside of the IT band complex. This was excised and debrided. Thorough irrigation was carried out after extensive debridement. [The tear was developed by debriding degenerative tissue, and mobilizing the gluteus medius musculature from the underside of the TFL and gluteus braulio, as well from the capsule. There was also scar and adhesions to the joint capsule, which were freed up. The joint capsule remained intact.] [The medius had a near full thickness disruption which was mobilized. It did not reach the footprint at neutral abduction, and the tissue quality was poor from chronic atrophy. There was also some medius tendon left at the footprint which was nonviable. The minimus tendon seem to have a intact insertion. A small stump of the medius tendon remained and this would approximate to the medial aspect of the footprint with minimal tension..] The footprint was prepared using large curette as well as rongeur to remove degenerative fibrous insertional tissue to reveal bleeding bony bed for repair. A flat rasp and Thakur were used to expose the punctate bleeding on the footprint of the trochanter. A flat ostium was used to remove some enthesiopathy on the distal insertion area. This was also used to crosshatch the footprint. Retractors were removed from the gluteal fascia to allow the TFL and gluteus braulio tissue to approximate over the trochanter. A 3 cm wide portion was marked on the TFL and gluteus braulio for transfer. 10 blade was used to elevate this flap from the anterior edge of the posterior limb of the gluteal split. I ensured the TFL/gluteus braulio tendon stump could easily reach the lateral row with appropriate tension at neutral abduction. The posterior limb of the split was dissected bluntly. Once the bony bed and transfer flap was prepped, the proximal row of our fixatio n was inserted. This consisted of 3 separate Arthrex 2.6 mm RC knotless fiber tacks with knotless mechanism. An Arthrex scorpion was used to pass a fiber link for shuttling the stitches through the posterior, central, and posterior aspect of the marked transfer flap, as well as the deeper tuft of residual medius. The anterior anchor repair stitch was left on past so acute since back down in a simple imbrication on the anterior edge through the minimus. The medial seal using the knotless mechanisms were then deployed. The anterior fiber tack had a simple knotless seal in the anterior edge. This repair stitch was then carried to the central anchor using the amparo mechanism which provided a medial seal. The second repair stitch from the middle anchor was then length through the posterior anchor amparo to complete her medial seal. The final repair stitch was brought laterally to close down the mechanism. The suture tape tails were then divided for lateral transposition. The tendon stump was then draped down over the exposed footprint. The sites for the lateral row swivel locks were marked with the Bovie. The suture tape tails were loaded in a crisscrossing pattern to an anterior and posterior position. The lateral row swivel lock was drilled and tapped on power. The anchors deployed with excellent purchase. The knotless mechanism for the 5.5 swivel locks was then used by passing back to the posterior and anterior limb of the tissue. These repair stitches were then linked to this alternating lateral row anchor to get a lateral compressive seal. The distal stump of the transfer tendon was then approximated to the elevated vastus lateralis using #2 Vicryl stitches. The footprint was covered in its entirety. Hip was taken the range of motion to show solid fixation and appropriate tension of the repair and tendon transfer. Thorough saline irrigation was carried out of the repair site. Closure began with the IT band. #2 Vicryl suture was used to reapproximate the IT band layers over top the anterior transferred portion from the posterior limb. Interrupted [id number] sutures were used throughout the IT band and TFL/Gmax repair. Irrigation was carried out once more. #1 Vicryl was used to approximate the adipose and fascial tissue above the IT band. 0 Vicryl layer was then used in the deep fat and dermal layer. The dermis was approximated using interrupted 2- 0 Vicryl suture, followed by altagracia for final skin closure. The wound was dressed with sterile Xeroform, plain gauze, ABDs, and contained by Tegaderm dressings. A spica type large Umer wrap was placed around the hip for compression. The abduction brace was placed in the OR with the patient sleeping. Patient tolerated procedure well, was extubated in the operating room without complication, and transferred to the PACU in stable condition. Disposition: The patient will be observed overnight in the hospital for evaluation by both physical and Occupational Therapy tomorrow. Next a discharge is expected. Partial weightbearing will be mandatory for the first 6 weeks. Crutches and/or walker can be used. DVT prophylaxis will be aspirin therapy starting on postop day 1. Physical therapy using the [facility] gluteus medius tendon repair protocol can begin at home as planned, immediately postoperative. Routine postop pain medications were prescribed. Physician diet assistant attestation: Clem Streeter PA-C was present and scrubbed for the duration of the case. He was essential to prepping/draping, patient positioning, retraction, suture management, and assistance with wound closure. I attest to the content of the Intraoperative Record and any orders documented therein. Any exceptions are noted below.
[2022-05-14] MEDS ORDERED: oxyCODONE HCL IR 5 MG TAB (IMMEDIATE RELEASE) PO PRN (13:52)
[2022-05-14] MEDS ORDERED: ACETAMINOPHEN 325 MG TAB PO PRN (13:52)
--- NOTE | 2022-05-14 14:19 | Anesthesiology Progress Note ---
Date of Service May 14, 2022 Anesthesia Post Procedure Vital Signs Vital Signs: Temp Pulse Pulse Resp BP Pulse Ox O2 Del Method 05/14/22 13:53 36.6 C 60 18 128/75 96 Room Air 05/14/22 13:30 63 95 H 120/66 95 Nasal Cannula 05/14/22 13:20 36.3 C L 60 14 119/70 96 Nasal Cannula 05/14/22 13:10 36.0 C L 60 15 113/67 95 Nasal Cannula 05/14/22 13:00 35.9 C L 61 12 116/69 94 Nasal Cannula 05/14/22 12:52 35.9 C L 66 20 122/73 94 Nasal Cannula 05/14/22 09:13 26.7 C L 62 20 153/90 H 97 Room Air O2 Flow Rate 05/14/22 13:53 05/14/22 13:30 3 05/14/22 13:20 3 05/14/22 13:10 3 05/14/22 13:00 3 05/14/22 12:52 3 05/14/22 09:13 Pain Intensity Left Hip: Pain Intensity: 5 Transfer of Care Handoff Completed per policy Notes Mental Status: alert / awake / arousable Patient Amnestic to Procedure: Yes Nausea / Vomiting: adequately controlled Pain: adequately controlled Airway Patency, RR, SpO2: stable & adequate BP & HR: stable & adequate Hydration State: stable & adequate Anesthetic Complications: no major complications apparent
--- NOTE | 2022-05-14 15:26 | History & Physical Report ---
Date of Service May 14, 2022 Assessment & Plan (1) Tear of gluteus medius tendon: (2) History of hip surgery: Plan Admitted postop after left hip gluteus medius open repair with bursectomy and gluteus edward transfer surgery. Admitted for postoperative pain management and PT/OT evaluations prior to discharge. Expect overnight admission until therapy can evaluate him tomorrow. Further disposition per their recommendations. Partial weightbearing left lower extremity for 6 weeks. Hip abduction brace for all ambulatory activities. He does not need to wear it in bed or when seated. Hip abduction pillow should be in place while in bed only. Oral pain management, with IV breakthrough as ordered. VTE prophylaxis will be mechanical and oral aspirin therapy Complete 24-hour antibiotic prophylaxis for surgery. History of Present Illness Chief Complaint: Left hip abductor deficiency. Primary Care Provider: TALIA PCP 76-year-old male admitted postoperatively after gluteus medius repair with gluteus edward transfer surgery to address chronic abductor deficiency. Given medical comorbidities and expected postoperative precautions with ambulation, he was admitted postoperatively for pain management and evaluation by PT/OT. Allergies Allergy/AdvReac Type Severity Reaction Status Date / Time hydrocodone Allergy Intermediate HIVES Verified 05/14/22 09:10 simvastatin Allergy Mild HIVES Verified 05/14/22 09:10 (with cholesterol med; unsure if zocor/simvastatin) Home Medications Medication Instructions Recorded Confirmed Type Bag[place]-3 1 cap PO QAM 12/09/18 05/14/22 History aspirin 81 mg tablet,delayed 81 mg PO QAM 12/09/18 05/14/22 History release cholecalciferol (vitamin D3) 50 2,000 unit PO QAM 12/09/18 05/14/22 History mcg (2,000 unit) capsule (Vitamin D3) levothyroxine 125 mcg tablet 125 mcg PO QAM 12/09/18 05/14/22 History pravastatin 80 mg tablet 40 mg PO QPM 12/09/18 05/14/22 History acetaminophen 650 mg 1,300 mg PO Q8 PRN Pain 12/29/18 05/14/22 History tablet,extended release (Tylenol Arthritis Pain) metoprolol succinate 25 mg PO DAILY 05/14/22 05/14/22 History ondansetron HCl 4 mg tablet 4 mg PO Q6H PRN nausea and 05/14/22 Rx vomiting #12 tabs oxycodone 5 mg tablet 5 - 10 mg PO Q4H PRN pain, initial 05/14/22 Rx therapy #18 tabs Past Med/Surg History Medical History AAA (abdominal aortic aneurysm) ~3.4cm per patient, monitored by PCP BPH (benign prostatic hyperplasia) Bradycardia S/p pacemaker placement CAD (coronary artery disease) 2015 - [place] [id number] stent - follows w/ [facility] cardio at [facility] 2005 - [place] [id number] stent 2004 - [place] [address] stent GERD (gastroesophageal reflux disease) controlled History of COVID-19 11/2021 fatigue, runny nose, cough ,fever; no hospitalization, no current i ssues Hx of basal cell carcinoma Hyperlipidemia Hypothyroidism Myocardial Infarction 2015 Pacemaker [facility]- checked via at home monitor every morning - last visit ?fall 2021 Spinal stenosis Tear of gluteus medius tendon Surgical History (Updated 05/14/22 @ 15:24 by Sunil Sanchez MD) History of cardiac cath 2015 - [place] [id number] stent - follows w/ [facility] cardio- ?2021 2005 [place] [id number] stent 2004 - [place] [address] stent History of colonoscopy History of esophagogastroduodenoscopy (EGD) History of hip surgery 05/14/2022 (Daniel) left hip open gluteus medius repair with gluteus edward transfer and bursectomy History of implantable cardiac defibrillator (ICD) History of knee replacement procedure of left knee History of knee replacement procedure of right knee History of lumbar spinal fusion Lumbar decompression/fusion: 02/01/13: Grade 3 view, MAC#3, ETT 7.5 at [facility] History of revision of total replacement of right shoulder joint History of right shoulder replacement History of toe surgery Rt great toe History of tooth extraction History of total left hip replacement History of total right hip replacement Hx of basal cell carcinoma excision Hx of cataract extraction b/l Family History Other No family history of adverse response to anesthesia Social History Smoking Status: Never smoker Second Hand Exposure: No; Do You Dip or Chew Tobacco: No; Tobacco Cessation Education Requested by Patient: No Hx Alcohol Use: No Hx Substance Use: No Preferred Language: Syrian Communication Ability: Effective Visual Impairment: No Limitations Hearing Ability: Normal Slip Laster Required: No Beliefs That Will Affect Care: None Current Living Situation: Spouse Other Information That Helps Us Care for You: No Feels Safe at Home: Yes Safety Concerns: Feels Safe At This Time Assistive Devices: Cane and Glasses Assistive Devices Comment: reading glasses Review of Systems All systems reviewed & are unremarkable except as noted in HPI & below. Physical Exam Left hip: Incision is covered by clean and dry dressing. He is neurovascular intact. Equal leg lengths. Constitutional WD/WN, vitals as above Respiratory normal respiratory effort; no respiratory distress Cardiovascular Extremities: normal capillary refill; no edema Chest (Breasts) Chest: normal inspection of chest Skin no rashes, warm and dry Psychiatric A+Ox3, euthymic affect Results & Data Results & Data Laboratory Results . Diagnostic Findings . PG Care Time/CCT Total # of Minutes Spent Total Time Spent with Patient: Total time spent is greater than 50% in coordination of care (as documented) at patient's floor/unit and/or counseling patient: Coding Level of Care Code None Diagnoses Tear of gluteus medius tendon S76.019A History of hip surgery Z98.891
[2022-05-14] MEDS: ceFAZolin 2000MG 2,000 MG/15 ML SYR IV SCH (18:29)
[2022-05-14] MEDS ORDERED: PRAVASTATIN SOD 40 MG TAB PO SCH (21:00)
[2022-05-14] MEDS: oxyCODONE HCL IR 5 MG TAB (IMMEDIATE RELEASE) PO PRN (21:00)
[2022-05-15] MEDS: ceFAZolin 2000MG 2,000 MG/15 ML SYR IV SCH (01:54)
[2022-05-15] MEDS: oxyCODONE HCL IR 5 MG TAB (IMMEDIATE RELEASE) PO PRN (04:25)
[2022-05-15] MEDS ORDERED: ALUMINUM/MAGNESIUM SUSP 30 ML UDC PO PRN ×2 (04:30→04:34)
[2022-05-15 08:24] LABS: Basophils # (auto) 0.03 K/uL (0-0.2); Basophils % (auto) 0.1 %; Hemoglobin 15.9 g/dl (14.0-18.0); Immature Granulocytes # (auto) 0.16 K/uL (0.01-0.20); Immature Granulocytes % (auto) 0.7 %; Lymphocytes # (auto) 1.75 K/uL (1.2-3.4); Lymphocytes % (auto) 7.8 %; Mean Corpuscular Hemoglobin 32.8 pg (25.0-34.0); Mean Corpuscular Hgb Conc 35.3 g/dL (32.0-36.0); Mean Corpuscular Volume 92.8 fL (80.0-100.0); Mean Platelet Volume 9.9 fL (9.4-12.4); Monocytes # (auto) 1.36 K/uL (0.11-0.59); Monocytes % (auto) 6.1 %; Neutrophils % (auto) 85.3 %; Platelet Count 176 K/uL (130-400); RDW Coefficient of Variation 12.9 % (11.5-14.5); RDW Standard Deviation 43.9 fL (36.4-46.3); Red Blood Count 4.85 M/uL (4.70-6.10)
[2022-05-15 08:56] LABS: BUN Creatinine Ratio 17.8 (10-20); Calcium 9.2 mg/dl (8.5-10.1); Creatinine Clr Calc Pharmacy 82.7 ml/min; Est GFR (African American) 94.5 ml/min; Est GFR (Non-African American) 81.5 ml/min; Potassium 4.1 mmol/L (3.5-5.1)
[2022-05-15] MEDS ORDERED: CHOLECALCIFEROL 1,000 UNITS 25 MCG TAB PO SCH (09:00)
[2022-05-15] MEDS ORDERED: METOPROLOL SUCC 25MG EXT REL TAB PO SCH (09:00)
[2022-05-15] MEDS ORDERED: OMEGA-3 (PURIFIED FISH OIL) 1 GM CAP PO SCH (09:00)
[2022-05-15] MEDS ORDERED: ASPIRIN 325 MG ECTAB PO SCH (09:00)
[2022-05-15] MEDS ORDERED: LEVOTHYROXINE SODIUM 125 MCG TABLET PO SCH (09:00)
--- NOTE | 2022-05-16 14:06 | Discharge Summary ---
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 Given medical comorbidities and expected postoperative precautions with ambulation, he was admitted postoperatively for pain management and evaluation by PT/OT. Admission Exam (Per Admitting) Left hip: Incision is covered by clean and dry dressing. He is neurovascular intact. Equal leg lengths. Principal Diagnosis Same as "Discharge Diagnosis" noted below under Discharge Instructions. Discharge Data Procedures Performed Operation Date: 05/14/22 07:00 <No data on this case meets the specified criteria> Operation Date: 05/14/22 10:15 Actual Procedures p Left Hip Open Bursectomy,Gluteal Tendon Repair witih Gluteus Braulio Transfer(Left) - Sunil Sanchez MD Hospital Course (1) History of hip surgery: Admitted for overnight observation post operatively afterLeft Hip Open Bursectomy, Partial Gluteal Tendon Repair with Gluteus Braulio Transfer. He had no major post operative complications and was cleared by PT/OT for discharge to home. PG Care Time/CCT Total # of Minutes Spent Total Time Spent with Patient: Total time spent is greater than 50% in coordination of care (as documented) at patient's floor/unit and/or counseling patient: Discharge Plan Discharge Items Patient Disposition: Home - Self-Care Reason For Visit: Gait Disturbance, Tear of Gluteus Medius Tendon Discharge Diagnosis: Same as above Activity: Per Instructions section Non-emergency contact: Surgeon Call non-emergency contact if: you have any medication questions, your pain is not controlled and your temperature is above 101 Follow-up/Referrals: Sunil Sanchez MD [Surgeon] - PCP,NO [Primary Care Provider] - Diet: Regular Addtl Attending Provider Instructions: Sunil Sanchez MD [facility] Orthopedic [facility] Orth[facility] [address], [place] [address] DISCHARGE INSTRUCTIONS FOR OPEN OR ARTHROSCOPIC GLUTEAL TENDON REPAIR WEIGHTBEARING: Flat-foot weightbearing for 6 weeks. Flatfoot Weightbearing means may place your foot on the ground, but do not transfer weightor stride on the leg. HIP MOTION: Try to relax with foot pointed forward. Comfort will be your guide. Physical therapy will work to teach you how to move appropriately. No active hip abduction (moving foot outward or away from body) Avoid active IR (turning foot or knee inward) for 6 weeks. Avoid passive hip adduction (crossing your legs) for 6 weeks. Do not push through pain or pinching. Gradual stretching is brush. WOUND CARE: Leave the dressing in place and keep the area clean and dry. After 3 days, you may remove your dressing. DO NOT REMOVE ANY SUTURES. DO NOT REMOVE THE PAPER TAPE STRIPS THAT ARE CROSSING YOUR INCISION THEY WILL FALL OFF GRADUALLY IN 2-3 WEEKS. After removing your dressing, you may begin to shower. Do not soak the incision. Allow gentle soap and water to run over the wound(s) and pat dry. Please cover the incision(s) with a clean, dry dressing, as needed. Do not use any ointments or topical medications unless directed by your surgeon. Do not submerse the incisions in water no pools, oceans, lakes, jacuzzis, bathtubs, etc for at least 3 weeks. PAIN CONTROL If you had an ANESTHETIC BLOCK, the effects will wear off in 6-12 hours. When you feel sensation returning, be ready with a pain medication. You may experience rebound pain for a few hours before pain subsides. Stay ahead of the pain with your medications. Use the cryocuff as directed, instead of ice. Use for 30 minutes per hour. Do not leave in place longer than 30 minutes, especially when your block is in effect, to prevent frostbite or thermal injury. MEDICATIONS: 1. Oxycodone (OxyIR) 1-2 tablet(s) orally every 4 hours for pain as needed. Use with Tylenol. Begin tapering OxyIR as soon as possible: reduce from 2 to 1 pills per dose, then spread out the doses over greater time intervals, then try to use only for therapy or for comfort while sleeping. Continue to use regular Tylenol until pain subsides. 2. Tylenol (325mg): 3 tablets every 8 hours orally. Regular dosing of Tylenol is an important part of your baseline pain control. Do not taper Tylenol until you have successfully tapered off of regular OxyIR. Do not take more than 3000mg of Tylenol per day. 3. Aspirin 325m tablet orally every day for 6 weeks to reduce the risk of dangerous blood clots. CONSTIPATION: Narcotic pain medications can slow down your digestive track, leading to constipation. Stay hydrated. While taking narcotics, the use of stool softeners is recommended. Two over the counter options are: 1. Colace (100mg): take 1-2 tabs twice daily to avoid constipation from OxyIR or other narcotics. 2. Miralax 1 tablespoon in a glass of water 2 times daily until normal bowel movements FOLLOWUP: 1. Ortho Clinic: You should be seen in 10-14 days. Please call immediately to schedule if you do not have an appointment. WHEN TO CALL. If you develop any of the following symptoms, please contact the Orthopedic Clinic at [phone]: Temperature greater than 101 taken twice, difficulty breathing, bleeding, fever and chills, increased pain unrelieved by pain meds, uncomfortable cast or splint, or any other concerns. Pending Studies at Discharge: No Stand-Alone Forms: [facility] Medications and DC Order Prescriptions: New ondansetron HCl 4 mg tablet 4 mg PO Q6H PRN (Reason: nausea and vomiting) Qty: 12 0RF oxycodone 5 mg tablet 5 - 10 mg PO Q4H PRN (Reason: pain, initial therapy) Qty: 18 0RF Rx Instructions: 1-2 tabs every 4 hours as needed for pain; maximum 6 tabs daily Continued aspirin 81 mg Tablet,Delayed Release (Dr/Ec) 81 mg PO QAM pravastatin 80 mg Tablet 40 mg PO QPM levothyroxine 125 mcg Tablet 125 mcg PO QAM cholecalciferol (vitamin D3) [Vitamin D3] 2,000 unit Capsule 2,000 unit PO QAM [place]-3 1 cap PO QAM acetaminophen [Tylenol Arthritis Pain] 650 mg Tablet Extended Release 1,300 mg PO Q8 PRN (Reason: Pain) metoprolol succinate tablet 25 mg PO DAILY Discharge Orders: Discharge Order (Routine); Ordered 05/15/22 Ordered By: Sunil Villarreal/Other Patient Handouts: ED Muscle Strain, Extremity Admission Data Admit Date/Time: 05/14/22 12:51 Attending Provider: Sunli Sanchez Admit Provider: Sunil Sanchez Primary Care Provider: PCP,NO Other Interventions: Discharge Summary Assessment (RN) Last Done: 05/15/22 13:27
== END 2022-05-15 14:23 | disposition home or self-care (01) ==
LOC: ASU 08:43 → 3E 08:43
DX: Z88.8 Allergy status to other drugs, medicaments and biological substances; Z88.5 Allergy status to narcotic agent; Z79.899 Other long term (current) drug therapy; Z79.82 Long term (current) use of aspirin; Z96.643 Presence of artificial hip joint, bilateral; Z86.16 Personal history of COVID-19; Z20.822 Contact with and (suspected) exposure to COVID-19; Z95.0 Presence of cardiac pacemaker; Z79.890 Hormone replacement therapy; S76.012A Strain of muscle, fascia and tendon of left hip, initial encounter; Z95.5 Presence of coronary angioplasty implant and graft; M70.72 Other bursitis of hip, left hip; X58.XXXA Exposure to other specified factors, initial encounter; I25.2 Old myocardial infarction